=== PATIENT | female | born 1965 | race Two or more races ===

== ENCOUNTER 2022-11-23 12:22 | Emergency (ER) | payer OTHER ==
[~2022-11-23] VITALS: Ht 149.9 cm; Wt 60.3 kg
--- NOTE | 2022-11-23 12:22 | NUR ---
BIB FAMILY STATING THAT SHE WAS AT HER DOCTOR'S APPOINTMENT AND FAINTED WHILE GIVING BLOOD. DENIES HITTING HEAD. PT AMBULATED TO BED WITH STEADY GAIT. AAOX4. VSS. BEATHING EVEN AND UNLABORED. AWAITING MD ORDERS.
--- NOTE | 2022-11-23 12:31 | NUR ---
SATINDER SANCHEZ AT BEDSIDE FOR EKG
--- NOTE | 2022-11-23 12:35 | NUR ---
JOB DEVELOPER AT BEDSIDE.
--- NOTE | 2022-11-23 12:37 | NUR ---
FUR BLOWING MACHINE ATTENDANT AT BEDSIDE
--- NOTE | 2022-11-23 12:40 | NUR ---
PT AMBULATED TO RESTROOM
[2022-11-23 12:43] LABS: BASOPHILS % (AUTO) 0.8 % (0.0-2.0); EOSINOPHILS % (AUTO) 2.3 % (0.0-6.0); HEMATOCRIT 42 % (33-45); HEMOGLOBIN 13.8 g/dL (11.5-14.8); LYMPHOCYTES # (AUTO) 3.1 K/uL (0.8-4.8); LYMPHOCYTES % (AUTO) 51.1 % (20.0-44.0); MEAN CORPUSCULAR HGB CONC 33 g/dl (31.0-36.0); MEAN CORPUSCULAR VOLUME 88 fL (82-100); MONOCYTES # (AUTO) 0.5 K/uL (0.1-1.30); MONOCYTES % (AUTO) 8.5 % (2.0-12.0); NEUTROPHILS # (AUTO) 2.3 K/uL (1.8-8.9); NEUTROPHILS % (AUTO) 37.3 % (43.0-81.0); PLATELET COUNT (AUTO) 318 K/uL (150-450); RED BLOOD CELL COUNT(AUTO) 4.74 MIL/uL (4.0-5.2); WHITE BLOOD COUNT (AUTO) 6.1 K/uL (4.3-11.0)
[2022-11-23 13:01] LABS: CALCIUM, SERUM 8.7 mg/dL (8.5-10.1); CARBON DIOXIDE 28 mmol/L (21-32); CHLORIDE 104 mmol/L (98-107); CREATININE 0.6 mg/dL (0.6-1.3); GLUCOSE 126 mg/dL (74-106); POTASSIUM 3.5 mmol/L (3.5-5.1); SODIUM SERUM 138 mmol/L (136-145); UREA NITROGEN, BLOOD 15 mg/dL (7-18)
--- NOTE | 2022-11-23 15:07 | NUR ---
Patient discharged to home in stable condition. Written and verbal after care instructions given. Patient verbalizes understanding of instruction.
[2022-11-23 15:08] VITALS: BP 109/64
== END 2022-11-23 15:12 | disposition home or self-care (01) ==
LOC: ER 12:27
DX: R55 Syncope and collapse (principal); E03.9 Hypothyroidism, unspecified; Z88.0 Allergy status to penicillin
CPT/HCPCS: 36415; 71045-TC; 80048-TC; 84484-TC; 85025-TC